=== PATIENT | female | born 1960 | race Caucasian/White ===

== ENCOUNTER 2018-07-09 08:31 | Emergency (ER) | payer BC, OTHER ==
[~2018-07-09] VITALS: Ht 162.6 cm; Wt 122.5 kg
--- OUTSIDE RECORDS SUMMARY | 2018-07-09 08:38 | XMS REPORT ---
Author Author Migration, Doctor Organization [facility] Address Unknown Phone Unavailable Care Team Providers Care Event Management Consultant Name Role Phone Migration, Doctor Unavailable Unavailable PROBLEMS Type Condition ICD9-CM Code [id number] Code Onset Dates Condition Status SNOMED Code Problem Asthma, unspecified, unspecified status 493.90 Active [id number] ALLERGIES No Information ENCOUNTERS Encounter Location Date Diagnosis [facility] [address] [place] [address] May, Acute frontal sinusitis J01.10 [facility] [id number] [address] 14 Jun, 2014 [facility] [id number] [address] Jun, [facility] [id number] [address] Nov, [facility] [id number] [address] 17 Nov, 2011 [facility] [id number] [address] 15 Nov, 2011 [facility] [id number] [address] 2010 IMMUNIZATIONS No Known Immunizations SOCIAL HISTORY Never Assessed REASON FOR VISIT EMR-[facility] PLAN OF CARE VITAL SIGNS MEDICATIONS Medication Instructions Dosage Frequency Start Date End Date Duration Status Albuterol Sulfate 2.5 mg /3 mL (0.083 %) 1 Each by Inhalation route every 4 hours for cough and wheezePRNfor wheezing or cough Nov, Active Olga 180 mg 1 tablet by Oral route 2 times per day Nov, Active ProAir HFA 90 mcg/actuation 2 puffs by Inhalation route 4 times per day for 30 day(s) Nov, Active PredniSONE 20 mg 2 tablet by Oral route 1 time per day for 5 day(s) Nov, Active RESULTS No Results PROCEDURES No Known procedures INSTRUCTIONS MEDICATIONS ADMINISTERED No Known Medications MEDICAL (GENERAL) HISTORY Type Description Date Medical History asthma Medical History seasonal allergies Medical History hypertension Surgical History section 1984,1991,1995 Surgical History appendectomy 1985
[2018-07-09] MEDS ORDERED: morphine INJ 10 MG/ML 1ML (SYR OR VIAL) IVP STA (08:58)
[2018-07-09] MEDS ORDERED: NS IV 1000 ML 1,000 ML IV SCH (09:00)
[2018-07-09] MEDS ORDERED: ONDANSETRON 4 MG/2 ML (SDV) Z0FRAN IVP ONE (09:00)
[2018-07-09] MEDS ORDERED: KETOROLAC 30 MG/ML VIAL ONE (09:36)
--- NOTE | 2018-07-09 09:43 | ED Abdominal Pain ---
General Chief Complaint: Abdominal/GI Problems Stated Complaint: BACK PAIN Nursing Triage Note: Sudden onset of left side pain at 0630 this morning. Is rating the pain at 15/ 10 and has not had anything for pain. Is nauseous and has vomited several times. Went to urgent care and was sent here for possible kidney stones. Sepsis Screen: No Definite Risk Source of Information: Patient Exam Limitations: No Limitations History of Present Illness Date Seen by Provider: July 09, 2018 Time Seen by Provider: 09:10 Initial Comments Patient is a 58-year-old female presents with acute onset left flank pain starting approximately one hour prior to ED arrival. Pain is described AN aching rated moderate to severe. Pain is nonradiating. It is not worse with palpation and movement and is not relieved by rest. Associated symptoms include nausea and vomiting, multiple episodes. No fever chills or sweats. No hematuria dysuria. Patient does report urinary frequency. Denies history of kidney stones. No prior abdominal surgeries. Timing/Duration: 1 Hour Severity/Quality: Severe Location: Flank Radiation: No Radiation Activities at Onset: Rest Associated Symptoms: Back Pain Allergies and Home Medications Allergies Uncoded Allergies: MEASLES VACCINE (Allergy, Unknown, 07/09/18) Patient Home Medication List Home Medication List Reviewed: Yes Review of Systems Review of Systems Constitutional: see HPI EENTM: See HPI Respiratory: See HPI Cardiovascular: See HPI Gastrointestinal: See HPI Genitourinary: See HPI Musculoskeletal: see HPI Skin: see HPI Psychiatric/Neurological: See HPI Endocrine: See HPI Past Ndlzewn-Wnkoan-Fsduyp Hx Past Med/Social Hx: Reviewed Nursing Past Med/Soc Hx Patient Social History Alcohol Use: Occasionally Uses Recreational Drug Use: No Smoking Status: Former Smoker Former Smoker, Quit: Mar 10, 1983 2nd Hand Smoke Exposure: No Recent Foreign Travel: No Contact w/Someone Who Travel: No Recent Infectious Disease Expo: No Recent Hopitalizations: No Physical Abuse: No Sexual Abuse: No Mistreated: No Fear: No Seasonal Allergies Seasonal Allergies: Yes Past Medical History Surgeries: Yes Appendectomy, Section, Tubal Ligation Respiratory: Yes Asthma Cardiac: No Neurological: No Genitourinary: No Gastrointestinal: No Musculoskeletal: No Endocrine: No HEENT: No Cancer: No Psychosocial: No Integumentary: No Blood Disorders: No Adverse Reaction/Blood Tranf: No Physical Exam Vital Signs Vital Signs - First Documented 07/09/18 08:44 Temp 97.4 Pulse 51 Resp 24 B/P (MAP) 159/69 (99) Pulse Ox 98 Capillary Refill : Less Than 3 Seconds Height/Weight/BMI Height: 5'4.00" Weight: 270lbs. oz. [id number]; BMI Method:Stated General Appearance: no apparent distress, other (moderate distress secondary pain) HEENT: PERRL/EOMI, normal ENT inspection Neck: supple Respiratory: chest non-tender, lungs clear, normal breath sounds Cardiovascular: regular rate, rhythm Gastrointestinal: normal bowel sounds, non tender, soft Extremities: non-tender Back: normal inspection, no CVA tenderness Skin: normal color, warm/dry Progress/Results/Core Measures Results/Orders Lab Results Laboratory Tests Test 07/09/18 08:49 07/09/18 09:09 Range/Units Urine Color YELLOW Urine Clarity SLIGHTLY CLOUDY Urine pH 5.5 5-9 Urine Specific [place] >=1.030 1.016-1.022 Urine Protein TRACE H NEGATIVE Urine Glucose (UA) NEGATIVE NEGATIVE Urine Ketones NEGATIVE NEGATIVE Urine Nitrite NEGATIVE NEGATIVE Urine Bilirubin NEGATIVE NEGATIVE Urine Urobilinogen 0.2 NORMAL MG/DL Urine Leukocyte Esterase TRACE H NEGATIVE Urine RBC (Auto) 3+ H NEGATIVE Urine RBC 50-100 H /HPF Urine WBC 5-10 H /HPF Urine Squamous Epithelial Cells 5-10 /HPF Urine Crystals NONE /LPF Urine Bacteria FEW H /HPF Urine Casts NONE /LPF Urine Mucus SMALL H /LPF Urine Culture Indicated YES White Blood Count 9.0 4.3-11.0 10^3/uL Red Blood Count 5.00 4.35-5.85 10^6/uL Hemoglobin 14.0 11.5-16.0 G/DL Hematocrit 44 35-52 % Mean Corpuscular Volume 87 80-99 FL Mean Corpuscular Hemoglobin 28 25-34 PG Mean Corpuscular Hemoglobin Concent 32 32-36 G/DL Red Cell Distribution Width 12.9 10.0-14.5 % Platelet Count 226 130-400 10^3/uL Mean Platelet Volume 10.9 H 7.4-10.4 FL Neutrophils (%) (Auto) 78 H 42-75 % Lymphocytes (%) (Auto) 15 12-44 % Monocytes (%) (Auto) 6 0-12 % Eosinophils (%) (Auto) 1 0-10 % Basophils (%) (Auto) 0 0-10 % Neutrophils # (Auto) 7.0 1.8-7.8 X 10^3 Lymphocytes # (Auto) 1.4 1.0-4.0 X 10^3 Monocytes # (Auto) 0.5 0.0-1.0 X 10^3 Eosinophils # (Auto) 0.1 0.0-0.3 10^3/uL Basophils # (Auto) 0.0 0.0-0.1 10^3/uL Sodium Level 143 135-145 MMOL/L Potassium Level 3.8 3.6-5.0 MMOL/L Chloride Level 104 98-107 MMOL/L Carbon Dioxide Level 20 L 21-32 MMOL/L Anion Gap 19 H 5-14 MMOL/L Blood Urea Nitrogen 17 7-18 MG/DL Creatinine 0.96 0.60-1.30 MG/DL Estimat Glomerular Filtration Rate 60 BUN/Creatinine Ratio 18 Glucose Level 178 H 70-105 MG/DL Calcium Level 9.3 8.5-10.1 MG/DL Corrected Calcium 9.3 8.5-10.1 MG/DL Total Bilirubin 0.6 0.1-1.0 MG/DL Aspartate Amino Transf (AST/SGOT) 14 5-34 U/L Alanine Aminotransferase (ALT/SGPT) 20 0-55 U/L Alkaline Phosphatase 80 40-136 U/L Total Protein 7.4 6.4-8.2 GM/DL Albumin 4.0 3.2-4.5 GM/DL My Orders Orders - MAHI MIR DO Ua Culture If Indicated (07/09/18 08:58) Ondansetron Injection (Zofran Injectio (07/09/18 09:00) Cbc With Automated Diff (07/09/18 08:58) Comprehensive Metabolic Panel (07/09/18 08:58) Morphine Injection (Morphine Injection (07/09/18 08:58) Ns Iv 1000 Ml (Sodium Chloride 0.9%) (07/09/18 09:00) Ct Abdomen/Pelvis Wo (07/09/18 08:58) Ketorolac Injection (Toradol Injection) (07/09/18 09:45) Ketorolac Injection (Toradol Injection) (07/09/18 09:36) Urine Culture (07/09/18 08:49) Ceftriaxone For Iv Use (Rocephin For I (07/09/18 10:30) Medications Given in ED Current Medications Medications Dose Ordered Sig/Olga Route Start Time Stop Time Status Last Admin Dose Admin Ceftriaxone Sodium 1000 mg/ Sterile Water 10 ml @ 200 mls/hr ONCE ONCE IV 07/09/18 10:30 07/09/18 10:32 DC 07/09/18 11:01 200 MLS/HR Ketorolac Tromethamine 15 mg ONCE ONCE IVP 07/09/18 09:45 07/09/18 09:46 DC 07/09/18 09:42 15 MG Ondansetron HCl 4 mg ONCE ONCE IVP 07/09/18 09:00 07/09/18 09:01 DC 07/09/18 09:08 4 MG Vital Signs/I&O 07/09/18 08:44 Temp 97.4 Pulse 51 Resp 24 B/P (MAP) 159/69 (99) Pulse Ox 98 Blood Pressure Mean: 99 Departure Communication (Admissions) CT of and pelvis without contrast shows distal left ureteral stone. Symptoms resolved in the ED. Patient resting comfortably. IV fluids, antibiotics given. Recommend continued supportive care with PCP follow-up. Return precautions reviewed. Patient verbalizes understanding and agreement discharge instructions pertinent to departure. Impression Primary Impression: Ureteral calculus, left Additional Impression: Urinary tract infection Disposition: 01 HOME, SELF-CARE Condition: Improved Departure-Patient Inst. Referrals: NO,LOCAL PHYSICIAN (PCP/Family) Primary Care Physician Patient Instructions: Kidney Stones (DC), Urinary Tract Infection, Adult (DC) Add. Discharge Instructions: Please increase fluids and take pain and nausea medication as needed and antibiotics as directed. Follow-up with his PCP 5-7 days for reevaluation. Return to the ED if new or worsening symptoms. All discharge instructions reviewed with patient and/or family. Voiced understanding. Scripts Ondansetron (Ondansetron Odt) 4 Mg Tab.rapdis 4 MG PO Q6H PRN for NAUSEA/VOMITING-1ST LINE, #10 TAB Prov: MAHI MIR DO 07/09/18 Hydrocodone/Acetaminophen ([place] 5-325 Tablet) 1 Each Tablet 1 TAB PO Q4-6HR for Pain MDD 10 TABS for 7 Days, #14 TAB Prov: MAHI MIR DO 07/09/18 Cephalexin (Keflex) 500 Mg Capsule 500 MG PO TID, #15 CAP Prov: MAHI MIR DO 07/09/18 Work/School Note: Family Work Note Patient Received Medical Care In the Emergency Department On: July 09, 2018 Patient Will Be Able to Return to Work/School On: July 10, 2018 Patient Restrictions: No restrictions MAHI MIR DO July 09, 2018 09:43
[2018-07-09] MEDS ORDERED: KETOROLAC 15 MG/ML VIAL IVP ONE (09:45)
--- NOTE | 2018-07-09 09:50 | Diagnostic Imaging Report ---
PROCEDURE: CT abdomen and pelvis without contrast. TECHNIQUE: Multiple contiguous axial images were obtained through the abdomen and pelvis without the use of intravenous contrast. Auto Exposure Controls were utilized during the CT exam to meet ALARA standards for radiation dose reduction. INDICATION: Left lower quadrant pain, left flank pain. There is a very mild degree of left-sided hydroureteronephrosis with very subtle mild perinephric and periureteric induration of the fat. There is some extra ureteral pelvic and gonadal vein phleboliths. Seen only on axial image 151, series 2, a minute punctate radiopacity of about 1 mm projects at the expected level of the distal left UVJ, a tiny at least partially obstructing stone at that level is presumed. There is noninflamed diverticulosis of the sigmoid. There is a 2 mm intrarenal stone nonobstructing within left upper pole calyx. The right kidney negative. The liver shows mild fatty infiltration. There is a gallstone present without biliary dilatation or findings of acute cholecystitis. The adrenals and pancreas normal. The aorta is nonaneurysmal. There is no ascites, abscess, hematoma or other fluid collection. IMPRESSION: 1. Very slight left hydroureteronephrosis and minimal perinephric and periureteric edema. This is believed to be owing to a subtle punctate 1 mm stone which is probably almost completely passed through the left UVJ. An additional nonobstructing intrarenal stone in the left kidney present, the right kidney negative. 2. Cholelithiasis and mild hepatic steatosis. 3. Noninflamed sigmoid diverticulosis. Dictated by: Dictated on workstation # [id number]
[2018-07-09 10:03] LABS: BASOPHILS % (AUTO) 0 % (0-10); EOSINOPHILS % (AUTO) 1 % (0-10); HEMATOCRIT 44 % (35-52); LYMPHOCYTES % (AUTO) 15 % (12-44); MEAN CORPUSCULAR HEMOGLOBIN 28 PG (25-34); MEAN CORPUSCULAR HGB CONC 32 G/DL (32-36); MEAN CORPUSCULAR VOLUME 87 FL (80-99); MEAN PLATELET VOLUME 10.9 FL (7.4-10.4); MONOCYTES % (AUTO) 6 % (0-12); NEUTROPHILS % (AUTO) 78 % (42-75); PLATELET COUNT 226 10^3/uL (130-400); RED CELL DISTRIBUTION WIDTH 12.9 % (10.0-14.5)
[2018-07-09 10:04] LABS: EOSINOPHILS # (AUTO) 0.1 10^3/uL (0.0-0.3); LYMPHOCYTES # (AUTO) 1.4 X 10^3 (1.0-4.0); MONOCYTES # (AUTO) 0.5 X 10^3 (0.0-1.0)
[2018-07-09 10:17] LABS: BILIRUBIN,URINE NEGATIVE (NEGATIVE); CLARITY,URINE SLIGHTLY CLOUDY; COLOR,URINE YELLOW; GLUCOSE, URINE (UA) NEGATIVE (NEGATIVE); KETONES,URINE NEGATIVE (NEGATIVE); NITRITE,URINE NEGATIVE (NEGATIVE); PH,URINE 5.5 (5-9); PROTEIN,URINE TRACE (NEGATIVE)
[2018-07-09 10:18] LABS: LEUKOCYTE ESTERASE ,URINE TRACE (NEGATIVE); UROBILINOGEN,URINE 0.2 MG/DL (NORMAL)
[2018-07-09 10:19] LABS: BACTERIA,URINE FEW /HPF; RBC,URINE 50-100 /HPF
[2018-07-09 10:21] LABS: POTASSIUM 3.8 MMOL/L (3.6-5.0)
[2018-07-09 10:22] LABS: BILIRUBIN,TOTAL 0.6 MG/DL (0.1-1.0); CALCIUM 9.3 MG/DL (8.5-10.1); CREATININE SERUM 0.96 MG/DL (0.60-1.30); TOTAL PROTEIN 7.4 GM/DL (6.4-8.2)
[2018-07-09] MEDS ORDERED: cefTRIAXone FOR IV USE 1,000 MG in WATER (STERILE) FOR INJECTION 10 ML IV ONE (10:30)
[2018-07-09] MEDS ORDERED: CEPH-507 PO (11:22)
[2018-07-09] MEDS ORDERED: HYDR-4226 PO (11:22)
[2018-07-09] MEDS ORDERED: ONDA4TAB11 PO (11:22)
[2018-07-09 11:34] VITALS: BP 158/83
== END 2018-07-09 11:34 | disposition home or self-care (01) ==
LOC: ER FS 08:34
DX: N13.6 Pyonephrosis (principal); J45.909 Unspecified asthma, uncomplicated; Z88.7 Allergy status to serum and vaccine; Z87.891 Personal history of nicotine dependence; Z90.49 Acquired absence of other specified parts of digestive tract; Z98.51 Tubal ligation status; Z98.890 Other specified postprocedural states
CPT/HCPCS: 36415; 74176; 80053; 81000; 85025; 87088